=== PATIENT | male | born 1990 | race Hispanic/Latino ===

== ENCOUNTER → 2024-07-26 09:19 | Outpatient (CLI) | payer OTHER, SELFPAY ==
--- NOTE | 2024-07-26 09:23 | DI.ECHO.S_ITS ---
[facility]+ [facility] : : [address] : : [place] : : [id number] : : Phone: [phone] Echocardiogram Report + + :Name: JOHNSON WEST Study Date: 07/26/2024 Height: 71 in : :Hospital ReadingLocation: Weight: 250 lb : : Gender: Male BSA: 2.3 m2 : :: 1990 Age: 34 yrs BP: 145/100 mmHg: :Reason For Study: TACHYCARDIA, DIABETES : :Ordering Physician: BLAYNE, : :MINA Performed By: Jim Ramirez : :Referring: MINA CISNEROS : + + Interpretation Summary The left ventricle is normal in size. The ejection fraction is estimated to be 55-60%. There are no focal wall motion abnormalities. Diastolic parameters suggest probable normal left ventricular diastolic function and normal filling pressures. The right ventricle is normal in size and function. Pulmonary artery pressures cannot be estimated because of the lack of a measurable TR jet velocity. The left atrial size is normal. There is no significant valvular heart disease. The aortic root is normal size. Procedure: A two-dimensional transthoracic echocardiogram with color flow and Doppler was performed. The study quality was technically adequate. There is no prior echocardiogram noted for this patient. The patient was in normal sinus rhythm during the exam. Left Ventricle: The left ventricle is normal in size. There is normal left ventricular wall thickness. There is no ventricular septal defect visualized. The ejection fraction is estimated to be 55-60%. There are no focal wall motion abnormalities. Diastolic parameters suggest probable normal left ventricular diastolic function and normal filling pressures. Right Ventricle: The right ventricle is normal in size and function. Atria: The left atrial size is normal. Right atrial size is normal. There is no Doppler evidence for an interatrial shunt. Mitral Valve: The mitral valve leaflets appear mildly thickened, but open well. There is trace mitral regurgitation. Aortic Valve: The aortic valve is grossly normal. No aortic regurgitation is present. Tricuspid Valve: The tricuspid valve leaflets are thin and pliable. No tricuspid regurgitation. Pulmonary artery pressures cannot be estimated because of the lack of a measurable TR jet velocity. Pulmonic Valve: The pulmonic valve is not well visualized. There is no pulmonic valvular regurgitation. There is no significant valvular heart disease. Great Vessels: The aortic root is normal size. The dimensions of the ascending aorta are normal. The pulmonary artery is normal size. The inferior vena cava was not visualized. Pericardium/ Pleura There is no pericardial effusion. MMode/2D Measurements & Calculations LVIDd: 4.1 cm LVOT diam: 2.3 cm LVIDs: 2.7 cm Ao root diam: 3.2 cm FS: 35.5 % asc Aorta Diam: 2.8 cm EPSS: 0.75 cm IVSd: 0.98 cm LVPWd: 1.0 cm LV keyes. diameter/BSA (cm/m^2): 1.8 LV sys. diameter/BSA (cm/m^2): 1.2 LA A2 area: 17.8 cm2 RA long axis: 4.2 cm LA A4 area: 16.6 cm2 RA area: 14.0 cm2 LA length (vol): 5.0 cm RA vol: 39.0 ml LA vol: 50.3 ml RA : 16.8 ml/m2 LA vol index: 21.7 ml/m2 RVD1 (basal): 3.5 cm RVD2 (mid): 3.5 cm TAPSE: 1.8 cm Doppler Measurements & Calculations Ao V2 max: 126.5 cm/sec LVOT Max Jose: 121.2 cm/sec Ao V2 mean: 90.1 cm/sec LV V1 max P.9 mmHg Ao max P.4 mmHg LV V1 VTI: 21.3 cm Ao mean P.6 mmHg POPPY(I,D): 3.9 cm2 Ao V2 VTI: 22.3 cm POPPY(V,D): 3.9 cm2 sev ratio: 0.95 POPPY indexed to BSA (cm^2/m^2): 1.7 MV E max jose: 86.7 cm/sec PA V2 max: 147.3 cm/sec MV A max jose: 49.3 cm/sec PA V2 mean: 103.7 cm/sec MV E/A: 1.8 PA mean P.8 mmHg Med Peak E' Jose: 8.9 cm/sec PA pr(Accel): 37.9 mmHg E/E' med: 9.8 Lat Peak E' Jose: 13.1 cm/sec E/E' lat: 6.6 E/e' average: 8.2 MV dec time: 0.16 sec SVEDVIN): 86.3 ml Reading Physician:01:50 PM
--- NOTE | 2024-07-26 09:50 | EKG_ITS ---
[facility] [id number] [place] [address] Test Date: 2024-07-26 Pat Name: Clayton Montana Department: Room: Gender: Male Scarrer: : 1990 Requested By: Order Number: [id number] Reading MD: Shon Massey MD Measurements Intervals [place] Rate: 79 P: 31 SD: 150 QRS: 13 QRSD: 92 T: 46 QT: 372 QTc: 426 Interpretive Statements Normal sinus rhythm Electronically Signed On 07-26-2024 17:11:29 PDT by Shon Massey MD
== END ==
PROVIDERS: Referring Provider Chiropractor; Visit Provider Chiropractor
DX: R00.0 Tachycardia, unspecified (principal); E11.9 Type 2 diabetes mellitus without complications
CPT/HCPCS: 93005; 93306

== ENCOUNTER → 2024-07-26 10:07 | Outpatient (CLI) | payer OTHER, SELFPAY ==
[2024-07-26 10:45] LABS: Appearance Urine UA CLEAR; Bilirubin Urine UA NEGATIVE (NEGATIVE); Color Urine UA YELLOW; Glucose Urine UA NEGATIVE (Negative); Ketones Urine UA NEGATIVE (NEGATIVE); Leukocyte Esterase Urine UA NEGATIVE (NEGATIVE); Nitrite Urine UA NEGATIVE (Negative); Occult Blood Urine UA TRACE-INTACT (Negative); Protein Urine UA NEGATIVE (Negative); Specific Gravity Urine UA >=1.030 (1.000-1.035); Urobilinogen Urine UA 0.2 E.U./dL (0.2)
[2024-07-26 10:46] LABS: Urine Volume 10mL (spun)
[2024-07-26 10:47] LABS: Bacteria Urine None Seen; RBC Urine None Seen (0-5/HPF); Squamous Epithelial Cell Urine None Seen (0-5/HPF); WBC Urine None Seen (0-5/HPF)
[2024-07-26 11:19] LABS: Alanine Aminotransferase 49 IU/L (<50); Albumin Globulin Ratio 1.6 (1.0-2.8); Alkaline Phosphatase 72 U/L (38-126); Aspartate Aminotransferase 33 IU/L (17-59); Bilirubin Total 0.6 mg/dL (0.2-1.3); Blood Urea Nitrogen 22 mg/dL (9-20); Calcium 9.4 mg/dL (8.4-10.2); Carbon Dioxide 23 mmol/L (22-32); Chloride 104 mmol/L (98-107); Estimated Glomerular Filt Rate > 60 mL/min (>60); Globulin 3.2 g/dL (1.7-4.1); Glucose 109 mg/dL (70-99); HEMOLYSIS < 15 (0-50); Potassium 4.3 mmol/L (3.4-5.1); Sodium 139 mmol/L (137-145); Total Protein 8.2 g/dL (6.3-8.2)
== END ==
PROVIDERS: Referring Provider Chiropractor; Visit Provider Chiropractor
DX: R00.0 Tachycardia, unspecified (principal); E11.9 Type 2 diabetes mellitus without complications
CPT/HCPCS: 36415; 80053; 81001